=== PATIENT | male | born 1975 | race Caucasian/White ===

== ENCOUNTER 2025-02-27 18:46 | Emergency (ER) | payer BC, SELFPAY ==
[2025-02-27 18:48] VITALS: BP 161/92
--- NOTE | 2025-02-27 21:06 | ED.GENMED ---
History of Present Illness
General
Chief Complaint: Skin Surface Trauma
Source: patient
Time Seen by Provider: 02/27/25 20:57
History of Present Illness
History of Present Illness:
49-year-old male presenting to the emergency department for evaluation of a laceration sustained to the left little finger while he was making dinner tonight noting that he excellently cut the finger with a sharp knife. Patient is right-hand
dominant, no other injuries were sustained, tetanus was updated 2 years ago.
Past History
Past History
ED Past Medical History: None
ED Past Surgical History: Orthopedic
Social History
Tobacco: Non-smoker
Alcohol: Occasional
Drug: None
Personal:
Living: with family
Review of Systems
Review of Systems
All Other Systems: ROS reviewed and negative except as documented in HPI and ROS
Phy Exam
Physical Exam
Physical Exam:
GENERAL: Alert , in no apparent distress
EYE: conjunctiva clear
Head: Normocephalic atraumatic
NECK: Supple,
ENT: mmm.
LUNGS: no acute respiratory distress
NEUROLOGICAL: Alert and oriented
SKIN: Warm and dry, skin avulsion to the tip of the left little finger, bleeding controlled with pressure but oozing noted when pressure is removed. Nailbed intact
MUSCULOSKELETAL: well perfused.
PSYCH: Normal and appropriate interaction.
Scores
Heart Failure Risk
Heart Failure Risk Score: Not Applicable
Heart Score for Chest Pain Patients
STEMI patient?: Not applicable
Withdrawal Assessment of Alcohol
Withdrawal Assessment Completed?: Not applicable
Course
Vital Signs
Initial and Last Documented VS:
Initial Vital Signs
Temp Pulse Resp BP Pulse Ox
98.4 F 60 18 161/92 98
02/27/25 18:48 02/27/25 18:48 02/27/25 18:48 02/27/25 18:48 02/27/25 18:48
Last Documented Vital Signs
Temp Pulse Resp BP Pulse Ox
98.4 F 52 16 144/101 98
02/27/25 18:48 02/27/25 21:20 02/27/25 21:20 02/27/25 21:20 02/27/25 21:20
MDM/Problems Addressed
Differential Diagnosis Includes:
Simple laceration
Tuft fracture
No concern for neurovascular injury
MDM/Problems Addressed:
49-year-old male presenting to the ER for evaluation of a left little finger injury. No other injuries were sustained and tetanus is up-to-date. Injury is superficial. I do not suspect any complications. Will place Gelfoam to the affected area
for hemostasis. Patient advised on wound care. Otherwise stable for discharge home.
*Pulse Oximetry
SaO2: 98
Oxygen Mode of Delivery: Room air
Patient hypoxic: no
*Critical Care Note
Total Time (30-74mins, 75-104mins- exclusive of procedures): Not Applicable
ED Attending Note
-
Portions of this chart may have been created with voice recognition software.� Occasional wrong word or��sound alike� substitutions may have occurred due to the inherent limitations of voice recognition software.
Discharge Plan
Departure
Patient Disposition: Home (Routine Discharge)
Date of Disposition: 02/27/25
Time of Disposition: 21:06
Patient with high blood pressure during this ER visit?: Yes
Discharge Problem:
Laceration of left little finger
Instructions: Wound Care (DC)
Referrals:
Deneen Mckeon DO [Family Provider, Family Practice]
Interventions
Interventions:
*Risk Screen - Suicide Last Done: 02/27/25 18:52
*General Assessment Last Done: 02/27/25 19:34
*Neglect/Abuse Screening Last Done: 02/27/25 18:52
*ED- Fall Risk Assessment Last Done: 02/27/25 19:34
*ED COVID-19 Vaccine History Last Done: 02/27/25 19:34
*ED Influenza Vaccine History Last Done: 02/27/25 19:34
*Nursing Disposition Last Done: 02/27/25 21:20
ED-Skin Assessment Last Done: 02/27/25 21:19
Discharge Date and Time
Discharge Date/Time: 02/27/25 21:21
Print Language: SWEDISH
[2025-02-27 21:20] VITALS: BP 144/101
== END 2025-02-27 21:21 | disposition home or self-care (01) ==
LOC: EMR 18:46
PROVIDERS: EMERGENCY PHYSICIAN Emergency Medicine; FAMILY PHYSICIAN Family Medicine
DX: S61.217A Laceration without foreign body of left little finger without damage to nail, initial encounter (principal); W26.0XXA Contact with knife, initial encounter
CPT/HCPCS: 99282